=== PATIENT | female | born 1955 | race Caucasian/White ===

== ENCOUNTER 2017-05-27 19:12 | Emergency (ER) | payer OTHER ==
--- NOTE | ~2017-05-27 | ER ---
PATIENT'S NAME: [facility] AGE: 62 Y [address] ROOM: [place] [address] LOCATION: [facility] ADMIT DATE: 05/27/2017 ER/Outpatient Report DISCHARGE DATE: 05/27/2017 FAMILY PHYSICIAN: Jack Rivas MD ATTENDING PHYSICIAN: Aki Finley Time of Patient's Arrival: 1912 hours. Time of Patient's Evaluation: 1925 hours. CHIEF COMPLAINT: Dental pain. HISTORY OF PRESENT ILLNESS: This is a 62-year-old female who presents ER with right lower dental pain. She states she has been having troubles with her teeth for the past 6 months, but this flare-up has been worse since Thursday. She states the side of her face hurts. She has not been running any fevers with it. She states she has tried to call several dentists in town, but she does not have insurance and they want too much money upfront to be seen. She states that she has been using Tylenol and ibuprofen at home with no relief of her symptoms. ALLERGIES: NO KNOWN ALLERGIES. MEDICATIONS: None. PAST MEDICAL HISTORY: Negative. PAST SURGERIES: None. SOCIAL HISTORY: Denies smoking, drug, or alcohol use. REVIEW OF SYSTEMS: CONSTITUTIONAL: Denies any change in weight or fatigue. HEENT: She is complaining of dental pain. SKIN: No lesions or rashes. PHYSICAL EXAMINATION: VITAL SIGNS: Height 5 feet 3 inches stated, weight 87.8 kg taken, blood pressure is 161/102, pulse 98, respirations 16, temperature 97.7 degrees orally, and saturations 97% on room air. Karina Coma Score is 15. PATIENT'S NAME: TIM [facility] AGE: 62 Y [address] ROOM: [place] [address] LOCATION: [facility] ADMIT DATE: 05/27/2017 ER/Outpatient Report DISCHARGE DATE: 05/27/2017 FAMILY PHYSICIAN: Jack Rivas MD ATTENDING PHYSICIAN: Aki Finley GENERAL: Alert, tearful 62-year-old, in mild distress. HEENT: Head: Normocephalic. Eyes: Pupils are equal and reactive to light. Ears: TMs display good light reflexes bilaterally. Auditory canals clear. Nose: Turbinates pink with no drainage. Throat: No exudates or erythema. She does have widespread dental decay noted. There is no purulent drainage. No fluctuance of the gumline. LUNGS: Clear to auscultation bilaterally. No wheezes or crackles. Normal respiratory efforts. HEART: Regular rate and rhythm. EXTREMITIES: No clubbing or cyanosis. She has full range of motion of all limbs. LABORATORY DATA AND X-RAYS: None were done. IMPRESSION: Right lower dental pain. ASSESSMENT AND PLAN: We will place the patient on amoxicillin and give her some Graham to use as directed. She needs to continue to push fluids. She may alternate her pain medication as needed with ibuprofen. We did give her the free-in reduced clinics in the [facility] for dental clinics and she needs to see one of those as soon as possible. The patient understands and agrees with care. GLENN AVILA PA-C FOR MD GHANSHYAM OROZCO/lei /[id number] d: t: 05/31/17 1058, OUTPATIENT REPORT
== END 2017-05-27 19:44 | disposition disaster alternative care site (69) ==
LOC: GMED 19:12
DX: K08.89 Other specified disorders of teeth and supporting structures (principal)